=== PATIENT | female | born 1950 | race African-American/Black ===

== ENCOUNTER 2017-09-09 02:11 | Inpatient (IN) | payer MEDICARE, SELFPAY ==
[2017-09-09] MEDS ORDERED: HYDROcodone/Acetaminophen 10/325 mg Tablet ONE ×2 (02:27→11:18)
[2017-09-09] MEDS ORDERED: Acetaminophen 325 MG TAB PO PRN (07:16)
[2017-09-09] MEDS ORDERED: Acetaminophen 325 MG TAB ONE (10:00)
[2017-09-09 10:13] LABS: CKMB 2.2 ng/mL (0-6.6)
[2017-09-09 10:38] LABS: Troponin I Less than 0.010 ng/mL (< 0.028)
[2017-09-09] MEDS ORDERED: HYDROcodone/Acetaminophen 10/325 mg Tablet PO PRN (11:10)
[2017-09-09] MEDS ORDERED: Lorazepam 2 MG/ML VIAL SLOW IVP SCH (11:15)
[2017-09-09] MEDS ORDERED: Lorazepam 2 MG/ML VIAL ONE (11:18)
[2017-09-09] MEDS ORDERED: Gadobenate Dimeglumine 529 MG/1 ML (20ML VIAL) ONE (11:51)
[2017-09-09 12:29] VITALS: BMI 39.5
[2017-09-09] MEDS: Famotidine 20 MG TAB PO SCH ×2 (13:08→21:10)
--- NOTE | 2017-09-09 13:32 | HP ---
CHIEF COMPLAINT: Dizziness and headache. HISTORY OF PRESENT ILLNESS: Patient is a very pleasant 66-year-old female with a history of hyperten vickey, who presents to the hospital with worsening dizziness and headache. Patient stated that about 3-4 weeks ago, she started having frontal headaches, very dull in nature and intermittent. The patie nt states that she never gets headaches. The patient stated that yesterday when she was driving home to [place], she kind of felt very dizzy, so she pulled over and started to walk around hoping that t he dizziness will go away; however, she felt more lightheaded and at that time she felt diaphoretic a nd felt like she had to go to the bathroom. Patient stated that she did not have diarrhea and did no t end up going to the bathroom; however, she was very nauseated. She came to the ER for further eval uation. PAST MEDICAL HISTORY: Hypertension and back pain. PAST SURGICAL HISTORY: She has a history of back surgeries. She has had stomach stapling. She has had right knee replacement and hernia repair and she has also had a partial colectomy for bowel obstr uction. MEDICATIONS: She takes hydrocodone and she takes lisinopril and takes baclofen, unknown dose. SOCIAL HISTORY: She denies any history of smoking, drug use or alcohol use. FAMILY HISTORY: Father had a heart attack. Mother had a stroke. ALLERGIES: She has got no known drug allergies. REVIEW OF SYSTEMS: All negative except for the ones mentioned above in the HPI. PHYSICAL EXAMINATION: VITAL SIGNS: As of the following; temperature of 97.6, 16, 65, heart rate of 168/77. She is 98% on room air. GENERAL: She is awake, alert, and oriented x3, does not appear in any distress. CARDIOVASCULAR: S1, S2 present. No murmurs, rubs or gallops. LUNGS: Clear to auscultation. No rhonchi or wheezes noted. ABDOMEN: Soft, nontender. Bowel sounds are present x2. EXTREMITIES: No edema. Pedal pulses present x2. NEUROLOGIC: No focal deficits noted. Aghkso-[id number] heel to mason intact. LABORATORY DATA AND IMAGING DATA: As of the following: WBC is 4.7, hemoglobin of 11.3, hematocrit o f 31.6 and platelets of 271. Chemistry: Sodium of 142, potassium of 3.8, BUN of 12, creatinine 0.76 . Troponin x1 is negative. LFTs are normal. She did have a CAT scan that indicated a focal area of hypoattenuating within the anterior limb of the internal capsule on the right side which according t o reports stated that it is possible that it is chronic. The patient does not recall those. ASSESSMENT AND PLAN: The patient is a very pleasant 66-year-old female who complained to the [facility] with dizziness and weakness. 1. Abnormal CT brain. The patient's CT did indicate a focal area of hypoattenuation on the right an terior limb of the internal capsule. We will get an MRI brain for further evaluation because it is m entioned in the CAT scan that it is possible chronic. Also, we will check a TSH on this patient. We will check a vitamin B12 on this patient. We will also check orthostatics on this patient and based on the MRI finding, we will decide if we need to get Neurosurgery involved. The patient states that she has never known that she ever had a stroke in the past. 2. Dizziness and headache, this could be secondary to her current findings; however, I am not sure. EKG did not show any acute abnormalities. Troponins are negative. We will continue to monitor. 3. Deep venous thrombosis prophylaxis. We will put patient on subcu heparin.
--- NOTE | 2017-09-09 15:48 | MRI ---
MRI BRAIN WITH AND WITHOUT IV CONTRAST: DATE: 09/09/17. HISTORY: Abnormal CT scan examination. The patient reports headaches on and off for the last 1-2 days with ga it instability. Nausea and vomiting. COMPARISON: CT head obtained at [facility] on 09/08/17. FINDINGS: There are patchy and confluent areas of increased FLAIR and T2 weighted signal intensity in the periv entricular and subcortical white matter as well as in the jessica bilaterally. This is overall nonspeci fic but likely related to moderate chronic small-vessel ischemic changes. There is no evidence of re stricted diffusion to suggest an acute infarction. Abnormal noted on CT scan examination is likely r elated to remote lacunar infarction in the region of the right basal ganglia. There are increased FL AIR and T2 weighted signal abnormalities in each caudate nucleus likely attributable to adjacent raise miner ceho small-vessel ischemic changes within the periventricular white matter as well as probable small r emote lacunar infarctions in this region. The pineal gland is mildly enlarged measuring 12 mm x 12 mm with increased T2 weighted signal intensi ty. Postcontrast imaging demonstrates thin linear septations within this cystic pineal lesion. 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 Calcifications are present within the pineal gland . Septum pellucidum and third ventricle are in the midline. The ventricular system is normal in size, shape, and position. Orbits and skull base as well as the paranasal sinuses have a normal MRI appear ance. Appropriate flow voids are dmeonstrated at the base of the brain. IMPRESSION: 1. Evidence for a complex pineal cyst, but given complexity and appearance as well as size of the pi lam lesion, a short interval followup examination is recommended in 6 months. 2. Chronic small-vessel ischemic changes. There is no evidence of an acute infarction. 3. Abnormality of the pineal gland was reviewed with Dr. Dyson who is in agreement with the above fi ndings and assessment. POS: [facility]
[2017-09-09] MEDS ORDERED: Lisinopril 20 MG TAB PO SCH (21:00)
[2017-09-09] MEDS ORDERED: Baclofen 10 MG TAB PO PRN (21:00)
[2017-09-10] MEDS: HYDROcodone/Acetaminophen 10/325 mg Tablet PO PRN ×3 (00:12→16:02)
--- NOTE | 2017-09-10 01:02 | CON ---
DATE OF CONSULTATION: 09/09/2017 REFERRING PHYSICIAN: Leatha Soto MD REASON FOR CONSULTATION: Stroke versus mass in brain with abnormal CT scan of the head. HISTORY OF PRESENT ILLNESS: Ms. Camacho is a pleasant 66-year-old -[place] female who has bee n concerned for evaluation of abnormal CAT scan of the head with questionable stroke versus brain mas s. The patient reports that she started feeling lightheaded and dizzy. She felt somewhat off balanc e this morning. She decided to drive as she thought that over time this will improve. While driving , she continued to have dizziness, she had to trap puller. She also felt upset stomach, nauseated, and headache. The headache was bifrontal in origin. She thought that the symptoms may have been due to lack of not eating properly, though she pulled over and ate her meal; however, after the meal, she b ecame nauseated and vomited and she continued to have dizziness. She also felt symptoms which prompted her to present to the emergency room for further evaluation. She reports that she has been under a lot of stress lately and does have a history of irritable bowel syndrome that tends to be wor se with stress and anxiety. PAST MEDICAL HISTORY: Significant for hypertension, back pain, and stress and anxiety. PAST SURGICAL HISTORY: Significant for back surgeries, stomach stapling, right knee replacement, her patricio repair, partial colectomy for bowel obstruction. SOCIAL HISTORY: She denies smoking, alcohol use, or illicit drug use. FAMILY HISTORY: Noncontributory. CURRENT MEDICATIONS: Please review MAR. ALLERGIES: No known drug allergies. REVIEW OF SYSTEMS: As mentioned above in the HPI, otherwise negative. PHYSICAL EXAMINATION: VITAL SIGNS: Blood pressure of 176/72, pulse of 64, temperature of 97.7, respirations of 18, O2 sats of 100% on room air. GENERAL: A well-developed, well-nourished -[place]arshallese female, in no apparent distress. RESPIRATORY: Clear to auscultation bilaterally. CARDIOVASCULAR: Regular rate and rhythm. NEUROLOGIC: Mental status: The patient is awake, alert, oriented x3. Speech and language: Fluent speech. Cranial nerves: Pupils are 3 mm and reactive. Visual magaña are intact. Extraocular muscl es are intact. No nystagmus is noted. Face is symmetric. Tongue and uvula midline. Motor exam danuta wed normal tone and bulk with 5/5 strength in both upper and lower extremities. Sensory: Sensation is intact and symmetric. Deep tendon reflexes 2+ reflexes in both upper and lower extremities. Melodie nski: Plantar responses flexion bilaterally. Coordination intact to [id number] and finger t apping bilaterally. LABORATORY DATA: Reviewed, which included CBC, CMP, B12, folate, TSH, troponin, BNP, which is signif icant for WBC of 4.7, hemoglobin 11.3, hematocrit 31.6, otherwise unremarkable. IMAGING STUDIES: MRI brain without contrast was reviewed, which showed complex pineal cyst and chron ic microvascular ischemic changes. IMPRESSION: 1. Pineal cyst. 2. Migraine headache. 3. Anxiety and depression. PLAN: Ms. Camacho is a pleasant 66-year-old -[place] female who presented with the dizziness, lightheadedness, off balance, headache, nausea, or vomiting. This event is likely secondary to migr robb headache. This may have also been triggered by stress and anxiety. Her MRI brain showed incide ntal finding of pineal cyst. There was no abnormality in the ventricular system and based on the les ion of the cyst, it is unlikely to be the cause for her symptoms. I would recommend obtaining neuros urgical consultation to further evaluate for this lesion. Continue supportive care. She remained st able. The patient is okay to be discharged to home with outpatient followup with neurosurgeon.
[2017-09-10 04:55] LABS: #Basophils 0.1 thou/uL (0.0-0.2); #Eosinphils 0.1 thou/uL (0.0-0.7); #Lymphocytes 1.5 thou/uL (1.20-3.40); #Monocytes 0.3 thou/uL (0.11-0.59); #Neutrophils 1.6 thou/uL (1.40-6.50); %Basophils 1.4 % (0.0-1.0); %Eosinophils 2.5 % (0.0-10.0); %Lymphocytes 41.7 % (21.0-51.0); %Monocytes 9.5 % (0.0-10.0); %Neutrophils 44.9 % (42.0-75.0); Hemoglobin 10.6 g/dL (12.0-16.0); Mean Corpuscular HGB CONC 33.2 g/dL (32.0-36.0); Mean Corpuscular Hemoglobin 29.4 pg (27.0-31.0); Mean Corpuscular Volume 88.4 fL (78.0-98.0); Mean Platelet Volume 7.7 fL (7.4-10.4); Platelet Count 249 thou/uL (130-400); RBC Distribution Width 12.3 % (11.5-14.5); Red Blood Cell (RBC) Count 3.62 mill/uL (4.20-5.40); White Blood Cell (WBC) Count 3.6 thou/uL (4.8-10.8)
[2017-09-10 05:00] LABS: Anion Gap 12 mmol/L (10-20); BUN (Urea Nitrogen) 12 mg/dL (9.8-20.1); Calc. Creatinine Clearance 165 mL/min (70-130); Calcium 8.9 mg/dL (7.8-10.44); Carbon Dioxide 25 mmol/L (23-31); Cardiac Risk 2.2 (Less than 4.5); Chloride 107 mmol/L (98-107); Cholesterol 121 mg/dl (< 200 Desired); Estimated GFR-MDRD Greater than 90; Glucose 99 mg/dL (80-115); HDL Cholesterol 55 mg/dL (>60 Neg Risk); LDL Cholesterol, Calculated 51 mg/dL; Potassium 3.9 mmol/L (3.5-5.1); Sodium 140 mmol/L (136-145); Triglycerides 76 mg/dL (Less than 150)
[2017-09-10] MEDS: Famotidine 20 MG TAB PO SCH (08:23)
[2017-09-10] MEDS ORDERED: Lisinopril 20 MG TAB PO SCH (09:00)
[2017-09-10] MEDS ORDERED: Ketorolac Tromethamine 30 MG/ML VIAL IVP SCH (10:30)
[2017-09-10 16:42] VITALS: TEMP 98.1
[2017-09-10 18:00] VITALS: BP 174/75
[2017-09-10] MEDS ORDERED: Amlodipine 10 MG TAB PO SCH (18:15)
[2017-09-10] MEDS ORDERED: Pravastatin Sodium 20 MG TAB PO SCH (21:00)
[2017-09-10] MEDS ORDERED: Simvastatin 5 MG TAB PO SCH (21:00)
== END 2017-09-10 18:34 | disposition home or self-care (01) | DRG 103 ==
LOC: ERS 02:11 → ERHOLD 04:42 → 2SE 04:43
PROVIDERS: ADMIT Internal Medicine; ATTEND Internal Medicine
DX: G43.909 Migraine, unspecified, not intractable, without status migrainosus (principal); E34.8 Other specified endocrine disorders; R42 Dizziness and giddiness; R93.0 Abnormal findings on diagnostic imaging of skull and head, not elsewhere classified; K58.9 Irritable bowel syndrome, unspecified; F41.8 Other specified anxiety disorders; I10 Essential (primary) hypertension; Z98.84 Bariatric surgery status; Z90.49 Acquired absence of other specified parts of digestive tract
CPT/HCPCS: 36415; 70553; 80048; 80061; 82553; 82607; 84443; 84484; 85025; 85652; 93005; 93306; 96374; A9579; G8978-GP-CI; G8979-GP-CH; J1885; J2060

== ENCOUNTER 2018-03-19 10:32 | Outpatient (CLI) | payer MEDICARE ==
--- NOTE | 2018-03-19 11:44 | RAD ---
LEFT HIP TWO VIEWS: History: Left hip pain. FINDINGS: Some mild arthritic changes of the hip without significant joint space narrowing. Post-operative carey ges are noted in the lower lumbar, probably sacrum region. IMPRESSION: Mild arthritic change of the left hip. POS: [facility]
--- NOTE | 2018-03-19 11:45 | RAD ---
RIGHT HIP TWO VIEWS: History: Right hip pain. FINDINGS: Very mild arthritic change of the right hip. Minimal spur formation. No joint space narrowing. IMPRESSION: Minimal arthritic change of the right hip. POS: [facility]
== END 2018-03-19 10:33 | disposition home or self-care (01) ==
LOC: RAD 10:32
PROVIDERS: ATTEND Nurse Practitioner Family
DX: M25.551 Pain in right hip (principal); M25.552 Pain in left hip; M16.0 Bilateral primary osteoarthritis of hip